=== PATIENT | female | born 1990 | race Caucasian/White ===

== ENCOUNTER 2017-06-26 21:27 | Emergency (ER) | payer OTHER ==
[~2017-06-26] VITALS: Ht 170.2 cm; Wt 90.7 kg
[2017-06-27] MEDS ORDERED: BACTRIM DS TAB1 EACH PO (01:58)
== END 2017-06-27 01:56 | disposition home or self-care (01) ==
LOC: ER 21:27
DX: R53.81 Other malaise (principal); N39.0 Urinary tract infection, site not specified